=== PATIENT | female | born 1970 | race Caucasian/White ===

== ENCOUNTER 2021-09-04 09:49 | Day surgery (SDC) | payer OTHER, SELFPAY ==
[~2021-09-04] VITALS: Ht 160 cm; Wt 88.5 kg
[2021-09-04] MEDS ORDERED: fentaNYL citrate 0.05 MG/ML VIAL ONE (12:59)
[2021-09-04] MEDS ORDERED: LIDOCAINE 2% 100 MG/5 ML UJET TP ONE (13:00)
[2021-09-04] MEDS ORDERED: MIDAZOLAM 5 MG/5 ML VIAL ONE (13:00)
[2021-09-04] MEDS ORDERED: fentaNYL citrate 0.05 MG/ML VIAL IVP ONE (16:15)
== END 2021-09-04 14:27 | disposition home or self-care (01) ==
LOC: MDS 09:49 → MMU 10:08 → MDS 14:27
PROVIDERS: ATTEND Internal Medicine Gastroenterology
DX: Z12.11 Encounter for screening for malignant neoplasm of colon (principal); D12.2 Benign neoplasm of ascending colon; K57.30 Diverticulosis of large intestine without perforation or abscess without bleeding; K64.9 Unspecified hemorrhoids; F32.9 Major depressive disorder, single episode, unspecified; Z79.899 Other long term (current) drug therapy; Z20.822 Contact with and (suspected) exposure to COVID-19
CPT/HCPCS: 45385; 87426; J3010; J2250